=== PATIENT | female | born 1995 | race Caucasian/White ===

== ENCOUNTER 2021-04-14 20:06 | Observation (INO) ==
[2021-04-14] MEDS ORDERED: Ringers Solution, Lactated 1,000 ML IVC ONE (20:26)
[2021-04-14] MEDS ORDERED: Ringers Solution, Lactated 1,000 ML ONE (20:27)
== END 2021-04-14 22:05 | disposition home or self-care (01) ==
LOC: 1NENULAB
PROVIDERS: ADMIT Obstetrics & Gynecology; ATTEND Obstetrics & Gynecology

== ENCOUNTER → 2021-04-16 16:40 | Observation (INO) | END | disposition home or self-care (01) | LOC: 1NENULAB | PROVIDERS: ADMIT Student in an Organized Health Care Education/Training Program; ATTEND Student in an Organized Health Care Education/Training Program ==

== ENCOUNTER → 2021-04-17 00:45 | Observation (INO) | END | disposition home or self-care (01) | LOC: 1NENULAB | PROVIDERS: ADMIT Advanced Practice Midwife; ATTEND Advanced Practice Midwife ==

== ENCOUNTER 2021-04-18 20:05 | Inpatient (IN) ==
[~2021-04-18 20:05] MED LIST: *HR* Nalbuphine 10 MG/ML AMPUL IV PRN; Azithromycin 500 MG in 0.9 % Sodium Chloride 250 ML IVPB PRN; Famotidine 20 MG/2 ML VIAL IVP PRN; Metoclopramide 10 MG/2 ML VIAL IVP PRN; Naloxone 0.4 MG/ML INJ IVP PRN; Ondansetron 4 MG/2 ML VIAL IVP PRN
[2021-04-18] MEDS ORDERED: Oxytocin 20 units/ LR 1000 mL 20 UNIT/1,000 ML BAG IVC SCH (20:15)
[2021-04-18] MEDS ORDERED: EPHEDrine 50 MG/ML VIAL IVP PRN (20:36)
[2021-04-18] MEDS: Ringers Solution, Lactated 1,000 ML IVC SCH ×2 (20:45→23:25)
[2021-04-18] MEDS ORDERED: Epidural Premix (fent/bupiv) 110 ML EP SCH (20:45)
[2021-04-18 20:51] LABS: Basophils % 0.3 %; Eosinophils # 0.1 K/mcL (0.0-0.6); Eosinophils % 1.1 %; Hematocrit 37.3 % (35.3-44.9); Hemoglobin 12.6 g/dL (11.5-15.4); Lymphocytes # 1.4 K/mcL (0.6-4.6); Lymphocytes % 15.4 %; Mean Corpuscular HGB Conc 33.8 g/dL (31.6-35.5); Mean Corpuscular Hemoglobin 30.6 pg (28.0-33.3); Mean Corpuscular Volume 90.5 fL (83.0-100.0); Mean Platelet Volume 11.6 fL (9.4-12.4); Monocytes # 0.8 K/mcL (0.0-1.3); Monocytes % 8.6 %; Neutrophils # 6.5 K/mcL (1.6-8.9); Platelet Count 199 K/mcL (140-400); Red Blood Count 4.12 M/mcL (3.82-4.97); Red Cell Distribution Width 14.9 % (11.5-14.5); Segmented Neutrophils % 73.6 %; White Blood Count 8.8 K/mcL (4.3-11.1)
[2021-04-18 20:53] LABS: Amphetamine Screen,Urine Negative ng/mL (Cutoff=1000); Barbiturate Screen,Urine Negative ng/mL (Cutoff=200); Benzodiazepines Screen,Urine Negative ng/mL (Cutoff=200); Cannabinoid Screen,Urine Negative ng/mL (Cutoff = 50); Cocaine Screen,Urine Negative ng/mL (Cutoff= 300); Opiate Screen,Urine Negative ng/mL (Cutoff=300); Phencyclidine Screen,Urine Negative ng/mL (Cutoff=25)
[2021-04-18] MEDS ORDERED: Ropivacaine/PF 0.2% 20 ML VIAL ONE (23:03)
[2021-04-18] MEDS ORDERED: *HR* FentaNYL (PF) 100 MCG/2 ML VIAL ONE (23:03)
[2021-04-19] MEDS: Ringers Solution, Lactated 1,000 ML IVC SCH (04:38)
[2021-04-19] MEDS ORDERED: Measles/Mumps/Rubella Vacc 0.5 ML VIAL SQ PRN (10:44)
[2021-04-19] MEDS ORDERED: Rho Immune Globulin 1,500 UNIT SYRINGE IM PRN (10:44)
[2021-04-19] MEDS ORDERED: Oxytocin 20 units/ LR 1000 mL 20 UNIT/1,000 ML BAG IVC SCH (10:44)
[2021-04-19] MEDS ORDERED: Benzocaine/Menthol 56 GM AEROSOL SPRAY TP PRN (10:44)
[2021-04-19] MEDS ORDERED: Oxytocin 20 units/ LR 1000 mL 20 UNIT/1,000 ML BAG IVC ONE (10:44)
[2021-04-19] MEDS ORDERED: Prenatal Vit/FA 1 EACH TABLET PO SCH (10:44)
[2021-04-19] MEDS: Acetaminophen 325 MG TABLET PO PRN ×2 (11:28→17:27)
[2021-04-19] MEDS: Ibuprofen 600 MG TABLET PO PRN ×2 (11:29→17:28)
[2021-04-19] MEDS: *HR* HYDROcodone/Acet 5/325 mg TABLET PO PRN ×2 (15:12→20:52)
[2021-04-20] MEDS: *HR* HYDROcodone/Acet 5/325 mg TABLET PO PRN (01:03)
[2021-04-20 05:45] LABS: Basophils % 0.2 %; Eosinophils # 0.2 K/mcL (0.0-0.6); Eosinophils % 1.3 %; Hematocrit 31.2 % (35.3-44.9); Immature Granulocytes % 0.9 % (0-4); Lymphocytes # 1.3 K/mcL (0.6-4.6); Lymphocytes % 9.9 %; Mean Corpuscular HGB Conc 33.3 g/dL (31.6-35.5); Mean Corpuscular Hemoglobin 30.5 pg (28.0-33.3); Mean Corpuscular Volume 91.5 fL (83.0-100.0); Mean Platelet Volume 11.5 fL (9.4-12.4); Monocytes # 0.9 K/mcL (0.0-1.3); Monocytes % 7.2 %; Neutrophils # 10.2 K/mcL (1.6-8.9); Platelet Count 202 K/mcL (140-400); Red Blood Count 3.41 M/mcL (3.82-4.97); Red Cell Distribution Width 15.2 % (11.5-14.5); Segmented Neutrophils % 80.5 %; White Blood Count 12.7 K/mcL (4.3-11.1)
[2021-04-20 05:47] LABS: Hemoglobin 10.4 g/dL (11.5-15.4)
[2021-04-20 07:47] VITALS: BP 107/71; PULSE 95; TEMP 98; O2SAT 95
[2021-04-20] MEDS ORDERED: Aspirin Enteric Coated 81 MG Tablet PO SCH (09:00)
[2021-04-20] MEDS ORDERED: FERROUS SULFATE 134 MG PO SCH (09:00)
[2021-04-20] MEDS: Ibuprofen 600 MG TABLET PO PRN (09:52)
== END 2021-04-20 12:30 | disposition home or self-care (01) | DRG 542 ==
LOC: 1NENULAB → 1NENUOBS 04-19 11:12
PROVIDERS: ADMIT Obstetrics & Gynecology; ATTEND Obstetrics & Gynecology